=== PATIENT | male | born 1965 | race Hispanic/Latino ===

== ENCOUNTER 2018-12-16 13:08 | Emergency (ER) | payer OTHER ==
[2018-12-16] MEDS ORDERED: LIDOCAINE HCL 1% 20 ML VIAL ONE (13:20)
[2018-12-16] MEDS ORDERED: CEFAZOLIN SODIUM 1 GM VIAL ONE (13:21)
[2018-12-16] MEDS ORDERED: TETANUS/DIPHTHERIA TOXOID [ADULT] 0.5 ML VIAL IM ONE (13:21)
== END 2018-12-16 15:40 | disposition home or self-care (01) ==
LOC: EDH 13:08
DX: S62.632B Displaced fracture of distal phalanx of right middle finger, initial encounter for open fracture (principal); S61.212A Laceration without foreign body of right middle finger without damage to nail, initial encounter; W29.3XXA Contact with powered garden and outdoor hand tools and machinery, initial encounter; Y93.89 Activity, other specified; Y92.89 Other specified places as the place of occurrence of the external cause; Y99.8 Other external cause status
CPT/HCPCS: 12042; 73130; 90471; 90714; 96372; 99284; J0690